=== PATIENT | male | born 1945 | race Caucasian/White ===

== ENCOUNTER 2016-10-25 09:27 | Inpatient (IN) | payer MEDICARE, OTHER ==
[~2016-10-25] VITALS: Ht 185.4 cm; Wt 140.3 kg
[~2016-10-25 09:27] MED LIST: AMBIEN 10MG10 MG PO; ASPIRIN 81M81 MG/TA2 PO; CEPHALEXIN500 M1 PO; COLACE 100100 MG/CAP PO; DESYREL 100MG100 MG PO; DULERA1 AR1 IH; FOLIC ACID 40400 MCG PO; IRON324 M1 PO; LEVAQUIN 5500 MG/TA1 PO; MAXZIDE-25MG TA1 TAB PO; MUCINEX1200 MG PO; NO HOME MEDICATIONS; NORCO 325 MG-51 TAB PO; OMNICEF 300MG300 MG PO; PERCOCET 325 MG1 TA2 PO; PRILOSEC 20MG20 MG PO; PROVENTIL0.09 MG/A1 IH; SPIRIVA RE2.5 MCG/Ac IH; TYLENOL 325MG325 MG PO; TYLENOL 500MG500 MG PO; ULTRAM 50MG TAB50 MG PO; VITAMIN C500 MG PO; ZOFRAN ODT4 MG PO
[2016-10-25] MEDS ORDERED: GLUCOPHAGE500 MG/TAB PO (09:45)
[2016-10-25 10:47] LABS: BASO # 0.1 (0.0-0.2); BASO % 0.3 % (0.0-2.0); EOS # 0.1 (0.0-0.7); EOS % 0.8 % (0-4.0); GRAN # 11.3 (1.4-6.5); HEMOGLOBIN 15.1 g/dl (13.5-18.0); LYMPH # 1.7 (1.2-3.4); LYMPH % 11.6 % (20.0-51.0); MEAN CELL VOLUME 90 fl (80.0-100.0); MEAN CORPUSCULAR HEMOGLOBIN 31 pg (27.0-31.0); MEAN CORPUSCULAR HGB CONC 34 g/dl (33.0-37.0); MEAN PLATELET VOLUME 9.6 fl (7.4-10.4); MONO # 1.4 (0.1-0.6); MONO % 9.8 % (1.7-9.3); PLATELET COUNT 276 K/mm3 (130-400); RED BLOOD COUNT 4.89 M/mm3 (4.20-5.60); REDCELL DISTRIBUTION WIDTH-CV 12.4 % (11.5-14.5); WHITE BLOOD COUNT 14.6 K/mm3 (4.8-10.8)
[2016-10-25 11:03] LABS: ADJUSTED CALCIUM 9.2 mg/dL (8.4-10.2); ALBUMIN 3.7 gm/dL (3.5-5.0); BILIRUBIN,TOTAL 1.1 mg/dL (0.0-1.0); C-REACTIVE PROTEIN 5.9 mg/dL (0.0-0.9)
[2016-10-25 13:31] LABS: PH 5 (5-8); SQUAMOUS EPITHELIAL 0-2 /hpf; URINE APPEARANCE Clear; URINE BACTERIA None Seen /hpf; URINE BILIRUBIN Negative (NEGATIVE); URINE BLOOD 1+ (NEGATIVE); URINE COLOR Yellow; URINE GLUCOSE Negative (NEGATIVE); URINE KETONE Trace (NEGATIVE); URINE RBC 0-2 /hpf; URINE UROBILINOGEN Negative (NEGATIVE); URINE WBC 0-2 /hpf
[2016-10-25 14:41] VITALS: BP 129/52; PULSE 79; TEMP 98
[2016-10-25 16:27] VITALS: BP 155/63; PULSE 64; TEMP 99.9
[2016-10-25 20:46] VITALS: BP 142/61; PULSE 73; TEMP 99.6
[2016-10-26 00:43] VITALS: BP 126/53; PULSE 77; TEMP 99.2
[2016-10-26 03:27] VITALS: BP 116/50; PULSE 71; TEMP 99.1
[2016-10-26 07:31] VITALS: BP 131/56; PULSE 66; TEMP 98.4
[2016-10-26 09:04] LABS: HEMATOCRIT 43.2 % (42.0-52.0); HEMOGLOBIN 14.4 g/dl (13.5-18.0); MEAN CELL VOLUME 92 fl (80.0-100.0); MEAN CORPUSCULAR HEMOGLOBIN 31 pg (27.0-31.0); MEAN CORPUSCULAR HGB CONC 33 g/dl (33.0-37.0); PLATELET COUNT 243 K/mm3 (130-400); REDCELL DISTRIBUTION WIDTH-CV 12.6 % (11.5-14.5); WHITE BLOOD COUNT 16.5 K/mm3 (4.8-10.8)
[2016-10-26 09:07] LABS: ADD PATHOLOGY DIFF REVIEW NO
[2016-10-26 12:00] VITALS: BP 134/72; PULSE 73; TEMP 98.1
[2016-10-26 13:44] LABS: BAND 5 % (0-10); BASOPHIL 1 % (0-2); EOSINOPHIL 1 % (0-4); METAMYELOCYTE 1 % (0-0); NEUTROPHILS 72 % (42.0-75.2); PLATELET ESTIMATE NORMAL (NORMAL); TOTAL CELLS COUNTED 100
[2016-10-26 16:57] VITALS: BP 118/54; PULSE 75; TEMP 98.8
[2016-10-26 20:05] VITALS: BP 124/57; PULSE 74; TEMP 99.6
[2016-10-27 00:31] VITALS: BP 114/66; PULSE 78; TEMP 99.2
[2016-10-27 04:31] VITALS: BP 124/56; PULSE 79; TEMP 98.9
[2016-10-27 07:42] VITALS: BP 125/55; PULSE 72; TEMP 98.2
[2016-10-27 08:41] LABS: BASO % 0.2 % (0.0-2.0); EOS # 0.2 (0.0-0.7); EOS % 1.3 % (0-4.0); GRAN # 8.7 (1.4-6.5); GRAN % 73.8 % (42.2-75.2); HEMATOCRIT 39.3 % (42.0-52.0); HEMOGLOBIN 13.1 g/dl (13.5-18.0); LYMPH # 1.5 (1.2-3.4); LYMPH % 12.5 % (20.0-51.0); MEAN CELL VOLUME 93 fl (80.0-100.0); MEAN CORPUSCULAR HEMOGLOBIN 31 pg (27.0-31.0); MEAN CORPUSCULAR HGB CONC 33 g/dl (33.0-37.0); MONO # 1.4 (0.1-0.6); MONO % 11.5 % (1.7-9.3); PLATELET COUNT 202 K/mm3 (130-400); RED BLOOD COUNT 4.25 M/mm3 (4.20-5.60); REDCELL DISTRIBUTION WIDTH-CV 12.5 % (11.5-14.5); WHITE BLOOD COUNT 11.7 K/mm3 (4.8-10.8)
[2016-10-27 09:04] LABS: ADJUSTED CALCIUM 9.2 mg/dL (8.4-10.2); ALBUMIN 3.2 gm/dL (3.5-5.0); BILIRUBIN,TOTAL 1.4 mg/dL (0.0-1.0); CALCIUM 8.6 mg/dL (8.4-10.2); CREATININE, serum 0.84 mg/dL (0.66-1.25); POTASSIUM 3.7 mmol/L (3.4-5.0); TOTAL PROTEIN 6.5 gm/dL (6.4-8.2)
[2016-10-27 12:00] VITALS: BP 119/96; PULSE 97; TEMP 98.2
[2016-10-27 16:02] VITALS: BP 126/61; PULSE 79; TEMP 98.6
[2016-10-27 20:26] VITALS: BP 131/58; PULSE 85; TEMP 98.3
[2016-10-28 00:11] VITALS: BP 111/53; PULSE 77; TEMP 98.9
[2016-10-28 03:30] VITALS: BP 118/55; PULSE 72; TEMP 98.1
[2016-10-28 06:40] LABS: CALCIUM 8.3 mg/dL (8.4-10.2); CREATININE, serum 0.76 mg/dL (0.66-1.25); POTASSIUM 3.5 mmol/L (3.4-5.0)
[2016-10-28 06:44] LABS: BASO % 0.5 % (0.0-2.0); EOS # 0.2 (0.0-0.7); GRAN # 5.8 (1.4-6.5); HEMOGLOBIN 12.4 g/dl (13.5-18.0); MEAN CELL VOLUME 90 fl (80.0-100.0); MEAN CORPUSCULAR HEMOGLOBIN 30 pg (27.0-31.0); MEAN CORPUSCULAR HGB CONC 34 g/dl (33.0-37.0); MEAN PLATELET VOLUME 10.1 fl (7.4-10.4); MONO # 1.1 (0.1-0.6); MONO % 14.1 % (1.7-9.3); PLATELET COUNT 185 K/mm3 (130-400); RED BLOOD COUNT 4.08 M/mm3 (4.20-5.60); REDCELL DISTRIBUTION WIDTH-CV 12.4 % (11.5-14.5); WHITE BLOOD COUNT 8.1 K/mm3 (4.8-10.8)
[2016-10-28 06:45] LABS: HEMATOCRIT 36.5 % (42.0-52.0)
[2016-10-28 08:09] VITALS: BP 133/55; PULSE 74; TEMP 98.2
[2016-10-28] MEDS ORDERED: PERCOCET 325 MG1 TA2 PO (09:16)
== END 2016-10-28 11:32 | disposition home or self-care (01) | DRG 439 ==
LOC: COL.ER 09:27 → MEDICAL 12:58
PROVIDERS: Emergency Medicine; Internal Medicine; Nurse Practitioner Family
DX: K85.90 Acute pancreatitis without necrosis or infection, unspecified (principal); Z68.41 Body mass index [BMI] 40.0-44.9, adult; K86.1 Other chronic pancreatitis; J43.9 Emphysema, unspecified; G47.33 Obstructive sleep apnea (adult) (pediatric); E11.9 Type 2 diabetes mellitus without complications; I10 Essential (primary) hypertension; E66.01 Morbid (severe) obesity due to excess calories; Z99.81 Dependence on supplemental oxygen; Z87.891 Personal history of nicotine dependence; Z79.84 Long term (current) use of oral hypoglycemic drugs
CPT/HCPCS: 99222-AI; 99232-AI; 99239; J1170; J1650; J2405; J7030; Q9967

== ENCOUNTER → 2017-10-27 | Outpatient (CLI) | payer MEDICARE, OTHER ==
[~2017-10-27] MED LIST changes: +GLUCOPHAGE500 MG/TAB PO
== END ==
LOC: COL.RAD 10:07
DX: Z13.6 Encounter for screening for cardiovascular disorders (principal)

== ENCOUNTER 2018-05-14 08:02 | Day surgery (SDC) | payer MEDICARE ==
[2018-05-14] VITALS (12 sets, daily range): BP systolic 119–162; BP diastolic 57–80; PULSE 61–100; TEMP 98.2
[~2018-05-14] VITALS: Ht 185.4 cm; Wt 154.0 kg
[2018-05-14 08:43] LABS: HEMOGLOBIN 15.6 g/dl (13.5-18.0); MEAN CELL VOLUME 94 fl (80.0-100.0); MEAN CORPUSCULAR HEMOGLOBIN 32 pg (27.0-31.0); MEAN CORPUSCULAR HGB CONC 34 g/dl (33.0-37.0); MEAN PLATELET VOLUME 9.5 fl (7.4-10.4); PLATELET COUNT 234 K/mm3 (130-400); RED BLOOD COUNT 4.92 M/mm3 (4.20-5.60); REDCELL DISTRIBUTION WIDTH-CV 13.2 % (11.5-14.5)
[2018-05-14 08:55] LABS: PROTHROMBIN TIME 11.6 SECONDS (9.7-12.8)
[2018-05-14 09:06] LABS: CALCIUM 8.8 mg/dL (8.4-10.2); CREATININE, serum 0.97 mg/dL (0.66-1.25); POTASSIUM 4.2 mmol/L (3.4-5.0)
[2018-05-14] MEDS ORDERED: LASIX 20MG TABL20 MG PO (09:25)
[2018-05-14] MEDS ORDERED: CARTIA XT120 MG PO (09:27)
[2018-05-14] MEDS ORDERED: K-DUR 10 MEQ T10 MEQ PO (09:27)
[2018-05-14] MEDS ORDERED: NITROSTAT0.4 MG/TAB SL (09:28)
[2018-05-14] MEDS ORDERED: FLOMAX 0.40.4 MG/CAP PO (09:28)
== END 2018-05-14 17:14 | disposition home or self-care (01) ==
LOC: COL.CAR 08:02
PROVIDERS: Internal Medicine Cardiovascular Disease
DX: I25.10 Atherosclerotic heart disease of native coronary artery without angina pectoris (principal); I27.20 Pulmonary hypertension, unspecified; R94.39 Abnormal result of other cardiovascular function study; E66.9 Obesity, unspecified; G47.33 Obstructive sleep apnea (adult) (pediatric); I49.1 Atrial premature depolarization; I49.3 Ventricular premature depolarization; J44.9 Chronic obstructive pulmonary disease, unspecified; Z88.6 Allergy status to analgesic agent
CPT/HCPCS: C1760; C1894; J1644; Q9967

== ENCOUNTER → 2019-08-31 | Outpatient (CLI) | payer MEDICARE ==
[~2019-08-31] MED LIST changes: +CARTIA XT120 MG PO; +FLOMAX 0.40.4 MG/CAP PO; +K-DUR 10 MEQ T10 MEQ PO; +LASIX 20MG TABL20 MG PO; +NITROSTAT0.4 MG/TAB SL
[2019-08-31 10:47] LABS: CALCIUM 9.5 mg/dL (8.4-10.2); CREATININE, serum 1.03 (0.66-1.25); POTASSIUM 5.1 mmol/L (3.4-5.0)
== END ==
LOC: COL.RAD 10:05
PROVIDERS: Internal Medicine Pulmonary Disease
DX: J43.9 Emphysema, unspecified (principal); J92.9 Pleural plaque without asbestos; K76.0 Fatty (change of) liver, not elsewhere classified; R91.1 Solitary pulmonary nodule; Z90.49 Acquired absence of other specified parts of digestive tract
CPT/HCPCS: Q9967

== ENCOUNTER → 2019-09-07 | Outpatient (CLI) | payer MEDICARE ==
[2019-09-07 16:12] LABS: HEMATOCRIT 46.9 % (42.0-52.0); MEAN CELL VOLUME 93 fl (80.0-100.0); MEAN CORPUSCULAR HEMOGLOBIN 32 pg (27.0-31.0); MEAN CORPUSCULAR HGB CONC 34 g/dl (33.0-37.0); MEAN PLATELET VOLUME 9.8 fl (7.4-10.4); PLATELET COUNT 245 K/mm3 (130-400); RED BLOOD COUNT 5.02 M/mm3 (4.20-5.60); REDCELL DISTRIBUTION WIDTH-CV 12.9 % (11.5-14.5)
[2019-09-07 16:40] LABS: ERYTHROCYTE SEDIMENTATION RATE 6 mm/hr (0-30)
== END ==
LOC: COL.LAB 14:55
PROVIDERS: Orthopaedic Surgery
DX: M25.561 Pain in right knee (principal); M25.562 Pain in left knee

== ENCOUNTER → 2020-02-04 | Outpatient (CLI) | payer MEDICARE ==
[2020-02-04 15:26] LABS: BASO % 0.3 % (0.0-2.0); EOS # 0.1 (0.0-0.7); EOS % 0.6 % (0-4.0); GRAN # 10.6 (1.4-6.5); GRAN % 75.3 % (42.2-75.2); HEMATOCRIT 48.5 % (42.0-52.0); LYMPH # 1.9 (1.2-3.4); LYMPH % 13.7 % (20.0-51.0); MEAN CELL VOLUME 93 fl (80.0-100.0); MEAN CORPUSCULAR HEMOGLOBIN 33 pg (27.0-31.0); MEAN CORPUSCULAR HGB CONC 35 g/dl (33.0-37.0); MEAN PLATELET VOLUME 9.3 fl (7.4-10.4); MONO # 1.4 (0.1-0.6); MONO % 9.8 % (1.7-9.3); PLATELET COUNT 274 K/mm3 (130-400); RED BLOOD COUNT 5.22 M/mm3 (4.20-5.60); REDCELL DISTRIBUTION WIDTH-CV 12.5 % (11.5-14.5)
[2020-02-04 15:40] LABS: ALBUMIN 4.2 gm/dL (3.5-5.0); CALCIUM 9.4 mg/dL (8.4-10.2); CREATININE, serum 0.87 (0.66-1.25); TOTAL PROTEIN 7.7 gm/dL (6.4-8.2)
[2020-02-04 15:51] LABS: ERYTHROCYTE SEDIMENTATION RATE 15 mm/hr (0-30)
== END ==
LOC: COL.LAB 15:03
PROVIDERS: Nurse Practitioner Family
DX: R10.12 Left upper quadrant pain (principal)

== ENCOUNTER → 2021-05-21 | Outpatient (CLI) | payer MEDICARE ==
[~2021-05-21] MED LIST changes: +THEO-24 30300 MG/CAP PO
== END ==
LOC: COL.RAD 07:15
DX: R68.81 Early satiety (principal); R63.4 Abnormal weight loss
CPT/HCPCS: A9541

== ENCOUNTER → 2021-05-22 | Outpatient (CLI) | payer MEDICARE | LOC: COL.RAD 08:07 | DX: K21.9 Gastro-esophageal reflux disease without esophagitis (principal); R63.4 Abnormal weight loss; R68.81 Early satiety ==

== ENCOUNTER 2021-06-07 12:10 | Day surgery (SDC) | payer MEDICARE ==
[~2021-06-07] VITALS: Ht 182.9 cm; Wt 142.4 kg
[~2021-06-07 12:10] MED LIST changes: -THEO-24 30300 MG/CAP PO
[2021-06-07 13:15] VITALS: BP 156/83; PULSE 72; TEMP 97.7
[2021-06-07] MEDS ORDERED: THEO-24 30300 MG/CAP PO (13:23)
[2021-06-07 15:01] VITALS: TEMP 97.5
[2021-06-07 15:30] VITALS: BP 156/87; PULSE 66
--- NOTE | 2021-06-07 15:30 | NUR ---
Patient returns to room 1 per cart from PACU accompanied by Hallie HERNANDEZ and is awake and alert. IV fluids infused and converted to INT. States that he is needing to urinate. Assisted up to the bathroom and gait is steady. Voids pink urine with small clot noted and returns to room. Room air sats 94%.
[2021-06-07 15:45] VITALS: BP 175/82; PULSE 68
--- NOTE | 2021-06-07 15:45 | NUR ---
Sitting on edge of cart eating muffin and apple sauce. Denies pain or nausea.
[2021-06-07 16:00] VITALS: BP 173/77; PULSE 65
--- NOTE | 2021-06-07 16:00 | NUR ---
Again up to the bathroom and gait steady. Voids and returns to room. Ride notified.
--- NOTE | 2021-06-07 16:05 | NUR ---
INT discontinued and site is free of redness. Patient is dressed. Dismissal instructions signed.
--- NOTE | 2021-06-07 16:11 | NUR ---
Patient dismissed to home driven by grandson. Taken to the front door by wheelchair and assisted into vehicle.
== END 2021-06-07 16:11 | disposition home or self-care (01) ==
LOC: SDCO 12:10
DX: C67.9 Malignant neoplasm of bladder, unspecified (principal); N40.1 Benign prostatic hyperplasia with lower urinary tract symptoms; R30.0 Dysuria; R35.0 Frequency of micturition; N40.0 Benign prostatic hyperplasia without lower urinary tract symptoms; J43.9 Emphysema, unspecified; E78.5 Hyperlipidemia, unspecified; E66.9 Obesity, unspecified; G47.33 Obstructive sleep apnea (adult) (pediatric); M19.90 Unspecified osteoarthritis, unspecified site; I49.3 Ventricular premature depolarization; I10 Essential (primary) hypertension; D64.9 Anemia, unspecified; Z90.49 Acquired absence of other specified parts of digestive tract; Z20.822 Contact with and (suspected) exposure to COVID-19; Z79.899 Other long term (current) drug therapy; Z87.891 Personal history of nicotine dependence; Z99.89 Dependence on other enabling machines and devices; Z85.828 Personal history of other malignant neoplasm of skin
CPT/HCPCS: J0690; J1100; J2405; J2704; J3010; J7120; Q9967

== ENCOUNTER 2021-07-05 13:09 | Day surgery (SDC) | payer MEDICARE ==
[~2021-07-05] VITALS: Ht 182.9 cm; Wt 140.0 kg
[~2021-07-05 13:09] MED LIST changes: +THEO-24 30300 MG/CAP PO
[2021-07-05 14:12] VITALS: BP 140/91; PULSE 84; TEMP 97.8
[2021-07-05 17:07] VITALS: TEMP 97.9
[2021-07-05 17:20] VITALS: BP 154/80; PULSE 76
--- NOTE | 2021-07-05 17:20 | NUR ---
Patient returns to room 5 per cart from PACU accompanied by Yumiko HERNANDEZ and is awake and alert. Temp 98.7 and room air sats 93%. Tubbs catheter draining pink urine. No clots noted. STAT lock in place to secure tubbs. IV fluids infusing. Siderails up x2 and call light in reach. Drinking water.
[2021-07-05 17:35] VITALS: BP 156/67; PULSE 73
--- NOTE | 2021-07-05 17:35 | NUR ---
Eating muffin and drinking water. Alcazar with pink urine.
[2021-07-05 17:50] VITALS: BP 159/71; PULSE 63
--- NOTE | 2021-07-05 17:50 | NUR ---
IV discontinued and site is free of redness. Alcazar catheter connected to leg bag and instructed patient to use the leg bag during the day and large dependent drainage bag at night. Provided alcohol wipes and written instructions on how to care for catheter. Noted slight bleeding from meatus and rachelle cares done. Pressure applied and bleeding stops.
--- NOTE | 2021-07-05 18:07 | NUR ---
Assisted with dressing. Dismissal instructions given and signed. Patient voices understanding of these.
--- NOTE | 2021-07-05 18:13 | NUR ---
Patient dismissed to home driven by grandson and taken to the ER entrance and assisted into vehicle with instructions in hand.
== END 2021-07-05 18:11 | disposition home or self-care (01) ==
LOC: SDCO 13:09
DX: C67.2 Malignant neoplasm of lateral wall of bladder (principal); C44.90 Unspecified malignant neoplasm of skin, unspecified; I10 Essential (primary) hypertension; G47.33 Obstructive sleep apnea (adult) (pediatric); N40.0 Benign prostatic hyperplasia without lower urinary tract symptoms; J43.9 Emphysema, unspecified; E66.9 Obesity, unspecified; Z20.822 Contact with and (suspected) exposure to COVID-19; Z87.891 Personal history of nicotine dependence; Z79.899 Other long term (current) drug therapy; Z79.51 Long term (current) use of inhaled steroids
CPT/HCPCS: J0690; J2405; J2704; J3010; J7120

== ENCOUNTER 2021-10-22 08:39 | Day surgery (SDC) | payer MEDICARE ==
[~2021-10-22] VITALS: Ht 182.9 cm; Wt 141.1 kg
[2021-10-22 10:21] VITALS: BP 130/87; PULSE 129; TEMP 99.2
--- NOTE | 2021-10-22 11:15 | NUR ---
Patient was taken back to the OR.
[2021-10-22 12:16] VITALS: BP 125/74; PULSE 124; TEMP 98.2
[2021-10-22] MEDS ORDERED: MOTRIN 600600 MG/TAB PO (12:16)
[2021-10-22] MEDS ORDERED: ULTRAM 50MG TAB50 MG PO (12:16)
--- NOTE | 2021-10-22 12:16 | NUR ---
Patient arrived on cart from OR after recieving moderate sedation. Patient is alert and oriented x3. Patient denies having any pain. Vitals obatined. Patient was assisted with repositioning. Patient requested water without ice and is tolerating it well. Son was brought in from waiting room. Side rails x2. Call dye is at bedside.
[2021-10-22 12:31] VITALS: BP 130/88; PULSE 125
--- NOTE | 2021-10-22 12:31 | NUR ---
Patient requested a warm muffin to eat. His grandson is in his room. Vitals obtained.
[2021-10-22 12:46] VITALS: BP 145/91; PULSE 126
--- NOTE | 2021-10-22 12:46 | NUR ---
Vitals obtained. Patient expressed desire to be discharged.
--- NOTE | 2021-10-22 13:05 | NUR ---
Patient used the bathroom, and then was escorted out to the patient entrence via wheelchair. The patient was trasferred into the care of his grandson, who is present to drive. His grandson has the discharge packet and personal belonings of the patient. Patient was assisted into the front seat of the car, where he put on his seat belt.
--- NOTE | 2021-10-22 13:23 | NUR ---
IV was discontinued at this time. Catheter tip intact. Pressure dressing applied. No redness or swelling noted. Discharge instructions and educational material was reviewed with the patient and his grandson. Both verbalized understanding of material and the patient signed the related paperwork. Patient denied needing assistance with changing.
== END 2021-10-22 13:05 | disposition home or self-care (01) ==
LOC: SDCO 08:39
DX: C67.9 Malignant neoplasm of bladder, unspecified (principal); I10 Essential (primary) hypertension; I25.10 Atherosclerotic heart disease of native coronary artery without angina pectoris; J44.9 Chronic obstructive pulmonary disease, unspecified; G47.33 Obstructive sleep apnea (adult) (pediatric); D64.9 Anemia, unspecified; M19.90 Unspecified osteoarthritis, unspecified site; Z87.891 Personal history of nicotine dependence; Z99.89 Dependence on other enabling machines and devices; Z85.51 Personal history of malignant neoplasm of bladder; Z90.49 Acquired absence of other specified parts of digestive tract; Z79.899 Other long term (current) drug therapy; Z80.1 Family history of malignant neoplasm of trachea, bronchus and lung; Z80.3 Family history of malignant neoplasm of breast; Z80.8 Family history of malignant neoplasm of other organs or systems
CPT/HCPCS: C1788; J0690; J1644; J2704; J3010; J7120

== ENCOUNTER 2021-11-22 11:08 | Inpatient (IN) | payer MEDICARE ==
[2021-11-22] VITALS (352 sets, daily range): BP systolic 99–116; BP diastolic 62–71; PULSE 128–131; TEMP 97.7–98.3; O2SAT 77–96
[~2021-11-22] VITALS: Ht 182.9 cm; Wt 137.7 kg
[~2021-11-22 11:08] MED LIST changes: +MOTRIN 600600 MG/TAB PO
[2021-11-22 11:59] LABS: BASO % 0.1 % (0.0-2.0); EOS % 0.1 % (0.0-4.0); GRAN # 7.2 K/mm3 (1.4-6.5); GRAN % 88.6 % (42.2-75.2); HEMOGLOBIN 10.1 g/dl (13.5-18.0); LYMPH # 0.7 K/mm3 (1.2-3.4); LYMPH % 8.3 % (20.0-51.0); MEAN CELL VOLUME 99 fl (80.0-100.0); MEAN CORPUSCULAR HEMOGLOBIN 34 pg (27-31); MEAN CORPUSCULAR HGB CONC 34 g/dl (33.0-37.0); MEAN PLATELET VOLUME 9.9 fl (7.4-10.4); MONO # 0.2 K/mm3 (0.1-0.6); PLATELET COUNT 270 K/mm3 (130-400); RED BLOOD COUNT 3.01 M/mm3 (4.20-5.60); REDCELL DISTRIBUTION WIDTH-CV 17.2 % (11.5-14.5)
[2021-11-22 12:00] LABS: HEMATOCRIT 29.8 % (42.0-52.0)
[2021-11-22 12:04] LABS: INR 1.5 (0.8-3.0); PROTHROMBIN TIME 16.3 SECONDS (9.7-12.8)
[2021-11-22 12:21] LABS: ALBUMIN 2.9 gm/dL (3.4-4.8); BILIRUBIN,TOTAL 0.9 mg/dL (0.2-1.2); CALCIUM 8.7 mg/dL (8.4-10.2); CREATININE, serum 2.18 mg/dL (0.72-1.25); POTASSIUM 3.4 mmol/L (3.5-4.5); TOTAL PROTEIN 6.4 gm/dL (6.2-8.1)
[2021-11-22 12:29] LABS: TROPONIN-I 0.029 ng/mL (0.00-0.033)
[2021-11-22] MEDS ORDERED: ELIQUIS 5MG PO (12:34)
--- NOTE | 2021-11-22 14:10 | NUR ---
Patient arrives to ICU. He is on 5L O2. Short of breath with exertion. He is assisted to bed with 2:1 assist. HR 130s on tele. Cardizem gtt infusing at 5 mg/hr. Patient assessed and oriented to the room. All questions answered. Orders reviewed.
--- NOTE | 2021-11-22 14:16 | NUR ---
wallet and vanegas sent to the safe with Line Crewman. Contents reviewed and documented with the patient. $921 vanegas, 3 credit cards, ins cards, ID, med list and wallet.
--- NOTE | 2021-11-22 15:55 | NUR ---
Chemotherapy Precautions: Double gloves and gown should be worn when contact with urine x7 days (11/29 am). Primary nurse notified this RN that pt had recieved Gemcitabine this am at oncology office.
[2021-11-22 17:44] LABS: COLLECTION METHOD CLEAN CATCH
[2021-11-22 17:57] LABS: PH 5 (5-8); SQUAMOUS EPITHELIAL 0-2 /hpf (0-10); URINE APPEARANCE Hazy (CLEAR/HAZY); URINE BACTERIA Rare /hpf (NONE SEEN); URINE BILIRUBIN Negative (NEGATIVE); URINE BLOOD 1+ (NEGATIVE); URINE COLOR Yellow (YELLOW); URINE GLUCOSE Negative (NEGATIVE); URINE KETONE Negative (NEGATIVE); URINE LEUKOCYTE ESTERASE Negative (NEGATIVE); URINE NITRATE Negative (NEGATIVE); URINE PROTEIN(semi-quant) Negative (NEGATIVE); URINE UROBILINOGEN Negative (NEGATIVE)
--- NOTE | 2021-11-22 18:14 | NUR ---
JAIDEN/[place] [address]11/23/21. VERIFIED WITH DR. FRANZ, PIPING ENGINEER AND ANESTHESIA
--- NOTE | 2021-11-22 19:24 | NUR ---
REPORT GIVEN TO DAVID FREDERICK
--- NOTE | 2021-11-22 19:49 | NUR ---
BEDSIDE REPORT RECEIVED FROM DAVID RUIZ. PT LYING IN BED AT THIS TIME; PARTICIPATES IN REPORT. PT WILL BE NPO AFTER MIDNIGHT FOR JAIDEN/CARDIVERSION TOMORROW AM. RIGHT PORT A CATH ACCESSED WITH MEDICATIONS INFUSING; SEE GTT FLOW SHEET. LEFT AC PERIPHERAL IV SALINE LOCKED. FC TO DEPENDENT DRAINAGE. PT ON CHEMO PRECAUTIONS WHEN HANDLING URINE. PT OFFERS NO COMPLAINTS AT THIS TIME. VITAL SIGNS STABLE.
--- NOTE | 2021-11-22 22:05 | NUR ---
PTT WITHIN THERAPEUTIC HEPARIN RANGE AT 85.5. NO CHANGES MADE TO GTT RATE.
[2021-11-23] VITALS (1356 sets, daily range): BP systolic 93–131; BP diastolic 54–73; PULSE 80–130; TEMP 97.5–98.6; O2SAT 66–100
[2021-11-23 04:15] LABS: MEAN CELL VOLUME 96 fl (80.0-100.0); MEAN CORPUSCULAR HGB CONC 34 g/dl (33.0-37.0); MEAN PLATELET VOLUME 9.6 fl (7.4-10.4); PLATELET COUNT 195 K/mm3 (130-400); RED BLOOD COUNT 2.79 M/mm3 (4.20-5.60); REDCELL DISTRIBUTION WIDTH-CV 16.9 % (11.5-14.5)
[2021-11-23 04:21] LABS: HEMATOCRIT 26.8 % (42.0-52.0); HEMOGLOBIN 9.1 g/dl (13.5-18.0); MEAN CORPUSCULAR HEMOGLOBIN 33 pg (27-31)
--- NOTE | 2021-11-23 04:31 | NUR ---
HEPARIN GTT THERAPEUTIC AT THIS TIME WITH PTT RESULTING AT 105.4. CONTINUE HEPARIN GTT AT RATE OF 2300 UNITS/HR.
[2021-11-23 04:54] LABS: ALBUMIN 2.5 gm/dL (3.4-4.8); CALCIUM 8.4 mg/dL (8.4-10.2); CREATININE, serum 2.18 mg/dL (0.72-1.25); MAGNESIUM 1.8 mg/dL (1.6-2.6); PHOSPHOROUS 3.8 mg/dL (2.3-4.7); POTASSIUM 3.8 mmol/L (3.5-4.5)
[2021-11-23 05:22] LABS: ANISOCYTOSIS 1+; BAND 2 % (0-10); HYPOCHROMIA 1+; LYMPHOCYTE 3 % (20.0-51.0); NEUTROPHILS 93 % (42.0-75.2); PLATELET ESTIMATE NORMAL (NORMAL)
--- NOTE | 2021-11-23 07:45 | NUR ---
PT REPORT RECEIVED BEDSIDE BY DAVID FREDERICK. PT IS AWAKE AND ALERT IN BED. PT COMPLAINS OF DRY MOUTH. MOUTH MOISTENING LUBRICATION AND MOUTH SWABS PROVIDED. PT ASSESSMENT COMPLETD. JAIDEN/CARDIOVERSION SCHEDULED FOR 929. PT CONSENT SIGNED.
--- NOTE | 2021-11-23 10:05 | NUR ---
0946- time out 0948- JAIDEN begins 1000- JAIDEN end time 1002- cardioversion successful. RN, MAIL AGENT, Dr. Zee bedside
--- NOTE | 2021-11-23 13:23 | NUR ---
dry cure worker contacted patient's daughter, Nadine Arias [phone] to assess patient's discharge planning needs. Nadine states that patient lives with his grandson and had just completed chemotherapy for bladder cancer the day her was brought into the emergency room. Patient was able to ambulate, however tired easily and used wheelchair when out in the community. Patient's primary care provider is Dr Delvis Jarrett. Patient did not utilize any services and his insurance covers prescriptions. Patient has a durable power of commercial attorney appointing daughter, Maxine Rust [phone]. Nadine will attempt to locate the document and get a copy to the hospital. Worker provided information on home health and private duty care. Nadine is very supportive of home health. Will await therapy consult and recommendation on disposition.
--- NOTE | 2021-11-23 20:11 | NUR ---
BEDSIDE REPORT RECEIVED FROM DAVID FLORENCE. PT HAD JULIO CÉSAR PICC PLACED TODAY; MEDICATIONS INFUSING, SEE GTT FLOW SHEET. RIGHT CHEST SHALOM CATH REMAINS ACCESSED AND SALINE LOCKED. FC TO DEPENDENT DRAINAGE. PT CURRENTLY ON 5L NC. SITS IN BED WITH HOB ELEVATED AND PARTICIPATES IN REPORT. VITAL SIGNS STABLE.
[2021-11-24] VITALS (1246 sets, daily range): BP systolic 108–149; BP diastolic 60–79; PULSE 80–102; TEMP 97.7–98.1; O2SAT 74–100
[2021-11-24 05:53] LABS: MEAN CELL VOLUME 98 fl (80.0-100.0); MEAN CORPUSCULAR HGB CONC 34 g/dl (33.0-37.0); MEAN PLATELET VOLUME 10.2 fl (7.4-10.4); PLATELET COUNT 122 K/mm3 (130-400); REDCELL DISTRIBUTION WIDTH-CV 16.8 % (11.5-14.5)
[2021-11-24 05:55] LABS: HEMATOCRIT 23.4 % (42.0-52.0); MEAN CORPUSCULAR HEMOGLOBIN 33 pg (27-31)
[2021-11-24 06:14] LABS: ANISOCYTOSIS 1+; HYPERSEGMENTED POLYS PRESENT; HYPOCHROMIA 1+; LYMPHOCYTE 6 % (20.0-51.0); NEUTROPHILS 92 % (42.0-75.2); PLATELET ESTIMATE DECREASED (NORMAL); POIKILOCYTOSIS 1+
[2021-11-24 06:39] LABS: ALBUMIN 2.2 gm/dL (3.4-4.8); CALCIUM 7.9 mg/dL (8.4-10.2); CREATININE, serum 2.31 mg/dL (0.72-1.25); MAGNESIUM 1.7 mg/dL (1.6-2.6); PHOSPHOROUS 4.2 mg/dL (2.3-4.7); POTASSIUM 3.5 mmol/L (3.5-4.5)
[2021-11-24 06:58] LABS: TSH w REFLEX 0.753 uIU/mL (0.350-4.940)
--- NOTE | 2021-11-24 07:51 | NUR ---
Dr. Torres into see patient. orders bumex and nitro drip.
--- NOTE | 2021-11-24 13:04 | NUR ---
PTT IN GOAL RANGE AT 107.8. NO CHANGE TO HEPARIN RATE.
--- NOTE | 2021-11-24 18:36 | NUR ---
PT UP TO BEDSIDE COMMODE WITH ASSISTANCE OF ONE. JAKE HAD A MEDIUM LIQUID CLEAR BM. BEDDING CHANGED AT THIS TIME. NEW GOWN FOR PT. DINNER ORDERED. PATIENT RESTING IN BED WITH CALL LIGHT IN HAND.
--- NOTE | 2021-11-24 20:57 | NUR ---
BEDSIDE REPORT RECEIVED FROM DAVID FLORENCE. FC TO DEPENDENT DRAINAGE. JULIO CÉSAR PICC IN PLACE WITH MEDICATIONS INFUSING; SEE GTT FLOW SHEET. RIGHT CHEST SHALOM CATH IN PLACE. PT WEARS 5L NC WITH SATS MAINTAINING IN LOW 90'S. PT IS ALERT AND ORIENTED AND PARTICIPATES IN REPORT. VITAL SIGNS STABLE.
[2021-11-25] VITALS (832 sets, daily range): BP systolic 115–128; BP diastolic 54–64; PULSE 93–107; TEMP 97.6–98.7; O2SAT 50–100
[2021-11-25 05:59] LABS: MEAN CELL VOLUME 99 fl (80.0-100.0); MEAN CORPUSCULAR HGB CONC 34 g/dl (33.0-37.0); PLATELET COUNT 92 K/mm3 (130-400); RED BLOOD COUNT 2.16 M/mm3 (4.20-5.60); REDCELL DISTRIBUTION WIDTH-CV 16.9 % (11.5-14.5)
[2021-11-25 06:02] LABS: HEMATOCRIT 21.4 % (42.0-52.0); HEMOGLOBIN 7.2 g/dl (13.5-18.0); MEAN CORPUSCULAR HEMOGLOBIN 33 pg (27-31)
[2021-11-25 06:27] LABS: LYMPHOCYTE 4 % (20.0-51.0); NEUTROPHILS 96 % (42.0-75.2)
[2021-11-25 06:29] LABS: ANISOCYTOSIS 1+
[2021-11-25 06:31] LABS: HYPERSEGMENTED POLYS PRESENT
[2021-11-25 06:33] LABS: PLATELET ESTIMATE NORMAL (NORMAL)
[2021-11-25 06:50] LABS: ALBUMIN 2.3 gm/dL (3.4-4.8); CREATININE, serum 2.38 mg/dL (0.72-1.25); MAGNESIUM 1.6 mg/dL (1.6-2.6); PHOSPHOROUS 4.8 mg/dL (2.3-4.7); POTASSIUM 3.6 mmol/L (3.5-4.5)
[2021-11-25 12:48] LABS: POTASSIUM 3.8 mmol/L (3.5-4.5)
--- NOTE | 2021-11-25 15:46 | NUR ---
Report given to DAVID Ramirez. Patient to room 315 on medical via wheelchair.
--- NOTE | 2021-11-25 17:40 | NUR ---
PT PLEASANT, AOX4, DENIES PAIN, BS TAKEN, ASSESSMENT PERFORMED, EDEMA PRESENT, PT BRACELET CUT OFF
--- NOTE | 2021-11-25 22:08 | NUR ---
Patient assessed around 2044. Alert and oriented, able to make needs known. Complained of pain to mouth and throat. Red patches noted to top of mouth and white patches to tongue. Called and updated LOLA Pak. New order for lidocaine swish and spit, and given per orders. Continues on IV Lasix per orders. 3+ edema BLE and BUE. Indwelling tubbs catheter with clear yellow urine. Continues on oxygen at 4 L/min via NC. Voices no further questions, needs, or concerns at this time. In bed with call light within reach.
[2021-11-26] VITALS (12 sets, daily range): BP systolic 11–127; BP diastolic 44–68; PULSE 70–101; TEMP 97.5–98.7
--- NOTE | 2021-11-26 06:11 | NUR ---
Patient continues on oxygen at 4 L/min via NC. Continues to have sore tongue and throat. Given medications per orders. Voices no further questions, needs, or concerns at this time. Daughter called and updated on patient this morning. Patient in bed with call light within reach. Bed alarm on.
[2021-11-26 06:40] LABS: ALBUMIN 2.4 gm/dL (3.4-4.8); CALCIUM 8.4 mg/dL (8.4-10.2); CREATININE, serum 2.35 mg/dL (0.72-1.25); MAGNESIUM 1.6 mg/dL (1.6-2.6); PHOSPHOROUS 4.9 mg/dL (2.3-4.7); POTASSIUM 3.7 mmol/L (3.5-4.5)
[2021-11-26 07:00] LABS: MEAN CELL VOLUME 98 fl (80.0-100.0); MEAN CORPUSCULAR HGB CONC 34 g/dl (33.0-37.0); MEAN PLATELET VOLUME 10.8 fl (7.4-10.4); PLATELET COUNT 66 K/mm3 (130-400); RED BLOOD COUNT 2.14 M/mm3 (4.20-5.60); REDCELL DISTRIBUTION WIDTH-CV 16.5 % (11.5-14.5)
[2021-11-26 07:09] LABS: HEMATOCRIT 20.9 % (42.0-52.0); HEMOGLOBIN 7.1 g/dl (13.5-18.0); MEAN CORPUSCULAR HEMOGLOBIN 33 pg (27-31)
[2021-11-26 07:38] LABS: LYMPHOCYTE 4 % (20.0-51.0); NEUTROPHILS 96 % (42.0-75.2); PLATELET ESTIMATE DECREASED (NORMAL)
--- NOTE | 2021-11-26 08:50 | NUR ---
PT PLEASANT, AOX4, REPORTS PAIN IN THROAT, WHITE SPOTS VISUALIZED ALONG WITH RED PATCHES, PT ASSESSMENT PERFORMED, DENIES PAIN ELSEWHERE, CALL LIGHT WITHIN REACH, NO OTHER NEEDS
[2021-11-26 10:56] LABS: IRON,SERUM 232 ug/dL (50-175)
[2021-11-26 12:13] LABS: STREP SCREEN NEGATIVE
--- NOTE | 2021-11-26 13:53 | NUR ---
PT REPORTING CHEST PRESSURE 10/10, DIZZINESS, AND SOB. EKG ORDERED, GREGORY DAVILA NOTIFIED, VITALS TAKEN, O2 SAT 87% SWITCHED TO OXYMASK AND TITRATED TO 6L. PT SATTING 95% ON THIS, PT REPORTS SOME RELIEF OF SOB, TYLENOL ORDERED AND GIVEN. CONTINUE TO ASSESS VITALS.
--- NOTE | 2021-11-26 15:15 | NUR ---
PT REPORTS VISION RETURNING TO NORMAL, RESOLVING OF CHEST PAIN AND SOB. VITALS STABLE AT THIS ITME
--- NOTE | 2021-11-26 16:15 | NUR ---
Soaping Department Supervisor met with patient to follow up on discharge plan. SW reviewed recommendation for Home Health services and patient is agreeable to this. Patient states he is familiar with [facility] and would like SW to send referral to them. SHAHRIAR contacted Melissa at [facility] and faxed referral. SHAHRIAR also contacted patient's daughter, Nadine to provide update on discharge plan. Discharge Plan: Home with [facility]
[2021-11-27] VITALS (19 sets, daily range): BP systolic 106–145; BP diastolic 39–77; PULSE 77–98; TEMP 97.6–98.4
--- NOTE | 2021-11-27 00:24 | NUR ---
AT 0015, PT CALLS NURSE TO REPORT CHEST PAIN 5/10 AND PRESSURE, AND REPORTS SAME SENSATION EARLIER IN THE DAY. (SEE PREVIOUS NOTES), TELE REP. CONTACTED, PT RYTHM UNCHANGED; NSR WITH BUNDLE BRANCH BLOCK AND OCCASIONAL PAC'S. PT VSS, 02 6L NC. TYLENOL ADMINISTERED ORDERED, THIS NURSE WILL CONTINUE TO MONITOR.
--- NOTE | 2021-11-27 05:49 | NUR ---
PT FOUND RELIEF WITH TYLENOL ADMINISTRATION AND SLEPT THE REMAINING OF THE NIGHT. VSS. NPO STATUS MAINTAINED. ALL NEEDS MET THIS SHIFT.
[2021-11-27 06:44] LABS: MEAN CELL VOLUME 98 fl (80.0-100.0); MEAN CORPUSCULAR HGB CONC 34 g/dl (33.0-37.0); MEAN PLATELET VOLUME 10.7 fl (7.4-10.4); RED BLOOD COUNT 1.93 M/mm3 (4.20-5.60); REDCELL DISTRIBUTION WIDTH-CV 16.3 % (11.5-14.5)
[2021-11-27 06:59] LABS: HEMOGLOBIN 6.4 g/dl (13.5-18.0); MEAN CORPUSCULAR HEMOGLOBIN 33 pg (27-31); PLATELET COUNT 35 K/mm3 (130-400)
[2021-11-27 07:05] LABS: ALBUMIN 2.3 gm/dL (3.4-4.8); CALCIUM 8.2 mg/dL (8.4-10.2); CREATININE, serum 2.05 mg/dL (0.72-1.25); MAGNESIUM 1.6 mg/dL (1.6-2.6); PHOSPHOROUS 4.5 mg/dL (2.3-4.7); POTASSIUM 3.8 mmol/L (3.5-4.5)
[2021-11-27 07:25] LABS: LYMPHOCYTE 16 % (20.0-51.0); NEUTROPHILS 84 % (42.0-75.2); PLATELET ESTIMATE DECREASED (NORMAL)
--- NOTE | 2021-11-27 08:48 | NUR ---
CRITICAL HEMOGLOBIN AND PLATELET COUNT REPORTED BY LAB. LOLA REED NOTIFIED OF CRITICAL VALUES, ELIQUIS PLACED ON HOLD AND IRRADIATED BLOOD ORDERED. TYPE AND SCREEN DRAWN WITH LAB, ASSESSMENT PERFORMED, PT C/O LEMUS LEAKING, MORE SALINE PLACED IN BALLOON, NO LEAKING AT THIS TIME, IV ANX INFUSING PER ORDER, CALL LIGHT WITHIN REACH, PT REPORTS SORE THROAT BUT DENIES PAIN ELSEWHERE, NO OTHER NEEDS
--- NOTE | 2021-11-27 09:52 | NUR ---
ENT PHYSICIAN CONSULTED PER ORDER
--- NOTE | 2021-11-27 11:09 | NUR ---
0700- shift assessment completed. Telemetry on, HR irregular and tachycardic. O2 on @ 7L via high flow nasal cannula. Breath sounds clear bilaterally, experience shortness of breath at rest and with exertion. Central line right upper arm and subclavian central line intact, no edema noted. Alcazar catheter dry and intact with 350ml output. Patient reports buring to catheter tip. BLE +3 pitting edema with SCD's used. Patient does not report any other pain.
--- NOTE | 2021-11-27 11:10 | NUR ---
DA UPDATED ON PT CONDITION
--- NOTE | 2021-11-27 11:15 | NUR ---
[facility]
--- NOTE | 2021-11-27 11:17 | NUR ---
Sayra, at [facility], notified SW that they did not receive the referral on the patient. She asked for SW to email her the referral. SW to email the referral to Sayra. Awaiting screen. *Discharge plan: home with grandson and home health*
[2021-11-27 19:31] LABS: MEAN CELL VOLUME 95 fl (80.0-100.0); MEAN CORPUSCULAR HGB CONC 34 g/dl (33.0-37.0); RED BLOOD COUNT 2.18 M/mm3 (4.20-5.60); REDCELL DISTRIBUTION WIDTH-CV 16.2 % (11.5-14.5)
[2021-11-27 19:41] LABS: HEMATOCRIT 20.7 % (42.0-52.0); MEAN CORPUSCULAR HEMOGLOBIN 32 pg (27-31)
[2021-11-27 19:43] LABS: PLATELET COUNT 26 K/mm3 (130-400)
[2021-11-27 20:20] LABS: HYPERSEGMENTED POLYS PRESENT; LYMPHOCYTE 9 % (20.0-51.0); PLATELET ESTIMATE DECREASED (NORMAL)
[2021-11-27 20:21] LABS: ANISOCYTOSIS 1+
[2021-11-27 20:22] LABS: NEUTROPHILS 91 % (42.0-75.2)
[2021-11-28] VITALS (11 sets, daily range): BP systolic 106–137; BP diastolic 39–99; PULSE 78–86; TEMP 97.4–98.5
--- NOTE | 2021-11-28 01:08 | NUR ---
THIS NURSE RECEIVED PLT CRITICAL VALUE EARLIER THIS SHIFT (SEE LAB TRAIL), HOSPITALIST INFORMED, BLOOD PRODUCTS ORDERED THROUGH LAB.
--- NOTE | 2021-11-28 05:37 | NUR ---
THIS NURSE CONTACTED HOSPITALIST TO CHECK FOR DC FOR ACCU CHECKS PT BS HAVE BEEN STABLE FOR SEVERAL DAYS. DC'D ACCU CHECKS. THIS NURSE CONTACTED "E" IN BLOOD BANK TO CONFIRM ORDER FOR PLATELETS WAS IN WE SPOKE ABOUT IT EARLIER IN THE NIGHT WHEN PLATELET CRITICAL VALUE WAS RELAYED. "E" CONFIRMED WITH THIS NURSE THAT THERE WAS NO IRRIDATED PLATELETS. THIS MORNING WHEN THIS NURSE CALLS FOR CONIFRMATION AND TO CHECK ETA "E" CONFIRMS THERE IS IRRADATED PLATELTS AVAILABLE. I REQUSTED TO MAKE SURE THAT PRODUCT WAS SUBMITTED AND AVAILBLE FOR PICKUP VIA [employer]. "E" CONFIRMS SHE WILL MAKE PRODUCT AVAILBLE VIA [employer].
[2021-11-28 06:32] LABS: MEAN CELL VOLUME 95 fl (80.0-100.0); MEAN CORPUSCULAR HGB CONC 34 g/dl (33.0-37.0); RED BLOOD COUNT 2.15 M/mm3 (4.20-5.60); REDCELL DISTRIBUTION WIDTH-CV 16.4 % (11.5-14.5)
[2021-11-28 06:42] LABS: HEMATOCRIT 20.5 % (42.0-52.0); MEAN CORPUSCULAR HEMOGLOBIN 33 pg (27-31)
[2021-11-28 06:43] LABS: PLATELET COUNT 21 K/mm3 (130-400)
[2021-11-28 07:03] LABS: CALCIUM 8.1 mg/dL (8.4-10.2); CREATININE, serum 1.77 mg/dL (0.72-1.25); MAGNESIUM 1.6 mg/dL (1.6-2.6); POTASSIUM 3.8 mmol/L (3.5-4.5)
[2021-11-28 08:11] LABS: ANISOCYTOSIS 1+; LYMPHOCYTE 24 % (20.0-51.0); PLATELET ESTIMATE DECREASED (NORMAL)
[2021-11-28 08:12] LABS: TEAR DROP CELLS 1+
[2021-11-28 08:33] LABS: NEUTROPHILS 76 % (42.0-75.2)
--- NOTE | 2021-11-28 11:23 | NUR ---
Patient laying in bed and stated SOB. O2 on @ 6L via nasal cannula. Lung sounds diminished at bases. Teketry on with irregular rhythm. Central line to upper right arm and right subclavian CDI. No drainage noted. Alcazar cath patent with clear yellow urine extracted. BLE expierencing +3 pitting edema and BUE +2. Patient complained of right groin pain. Bruising noted. Primary nurse notified.
--- NOTE | 2021-11-28 18:44 | NUR ---
PT HAD UNEVENTFUL AFTERNOON AFTER GIVEN HIS PAIN MEDICATION. REPORT WAS GIVEN TO CLASS C TRUCK DRIVER RN.
[2021-11-29] VITALS (21 sets, daily range): BP systolic 103–137; BP diastolic 45–60; PULSE 78–87; TEMP 97.3–98.4
--- NOTE | 2021-11-29 03:07 | NUR ---
PT REPORTS N/V BUT DOES NOT WANT MEDICATION INTERVENTION. PT REQUESTS TO PROCESS EMESIS. THIS NURSE WILL CONTINUE TO MONITOR.
--- NOTE | 2021-11-29 03:46 | NUR ---
PT COUGH PERSISTING NON-STOP THIS NIGHT, HEMOPTYSIS NOTED, SMALL , RED BLOOD NOTED. HOSPITALIST INFORMED. MEDICATION ORDERED. THIS NURSE WILL CONTINUE TO MONITOR.
--- NOTE | 2021-11-29 05:28 | NUR ---
PT FOUND RELIEF WITH ROBITUSIN ADMINISTRATION. NO MORE HEMOTPYSIS EPISODES SINCE PREVIOUSLY REPORTED. PT APPEARS VERY FRAIL AND PALE. THIS NURSE SPENT SUBSTANTIAL TIME WITH PT OVERNIGHT. LEMUS C&D, URINE CONTINUES TO BE SLIGHTLY HAZY. ALL NEEDS MET THIS SHIFT. CALL LIGHT WITHIN REACH.
[2021-11-29 07:01] LABS: MEAN CELL VOLUME 96 fl (80.0-100.0); MEAN CORPUSCULAR HGB CONC 34 g/dl (33.0-37.0); MEAN PLATELET VOLUME 12.3 fl (7.4-10.4); RED BLOOD COUNT 2.08 M/mm3 (4.20-5.60); REDCELL DISTRIBUTION WIDTH-CV 16.3 % (11.5-14.5)
[2021-11-29 07:07] LABS: CALCIUM 8.3 mg/dL (8.4-10.2); CREATININE, serum 1.57 mg/dL (0.72-1.25); HEMATOCRIT 19.9 % (42.0-52.0); MAGNESIUM 1.8 mg/dL (1.6-2.6); MEAN CORPUSCULAR HEMOGLOBIN 32 pg (27-31); POTASSIUM 3.8 mmol/L (3.5-4.5)
[2021-11-29 07:09] LABS: HEMOGLOBIN 6.7 g/dl (13.5-18.0)
[2021-11-29 07:10] LABS: PLATELET COUNT 21 K/mm3 (130-400)
--- NOTE | 2021-11-29 08:45 | NUR ---
Izzy notified of critical labs (Low WBC, Hgb, and PLT). Also notified of hemoptysis. Patient coughing up thick/green sputum, a large amount of bright red blood was also present.
[2021-11-29 09:10] LABS: BASOPHIL 1 % (0-2); LYMPHOCYTE 67 % (20.0-51.0); NEUTROPHILS 32 % (42.0-75.2); PLATELET ESTIMATE DECREASED (NORMAL)
[2021-11-29 09:11] LABS: ANISOCYTOSIS 1+; HYPOCHROMIA 1+
--- NOTE | 2021-11-29 10:21 | NUR ---
Met with patient at bedside to discuss goals of care. Patient informs me that he has a DPOA and living will. I discussed code status with him a little and he stated he wouldn't want to be on a machine or to suffer. Stated he would want to talk with his children before making any decisions though. Also discussed his care and how aggressive he would want to be with everything and if he understood where things stand with his cancer treatment. Again, patient stated he would like to involve his children in these talks. Call made to daughter and she had a better idea what all was going on with patient's cancer treatment and that she would call her siblings and get a family meeting coordinated. Gave my direct phone number and notified SW and hospitalist team of conversation and plan for family meeting.
--- NOTE | 2021-11-29 15:15 | NUR ---
Blood transfusion started @ 1507. Rate is currently at 60mL/hr; Patient is tolerating this well. This RN will remain in the room for 15minutes to continue to monitor for reaction.
--- NOTE | 2021-11-29 15:43 | NUR ---
A palliative care consult was ordered. The patient would like to talk to his family about goals of care. The patient's family plans to come to the hospital tomorrow for a family meeting.
--- NOTE | 2021-11-29 15:48 | NUR ---
Had conversation with patient's daughter, Nadine. Family meeting set for 1300 tomorrow with Nadine, her son who is the patient's caregiver, patient's daughter Liliane (DPOA), and patient's son at bedside with the patient and hospitalist. Nadine stated that her sister Liliane will also be here in the morning during rounds. SW and hospitalist notified of conversation as well. Nadine #[phone]
--- NOTE | 2021-11-29 17:26 | NUR ---
Blood transfusion completed; Patient tolerated it well. Daughter is at the bedside and an update was given. Plan is to start PLT transfusion shortly.
--- NOTE | 2021-11-29 18:20 | NUR ---
PLT Transfusion completed. Patient tolerated this well. VSS the entire time. Patient did not have any complaints.
[2021-11-29 18:40] LABS: MEAN CELL VOLUME 94 fl (80.0-100.0); MEAN CORPUSCULAR HGB CONC 35 g/dl (33.0-37.0); MEAN PLATELET VOLUME 9.6 fl (7.4-10.4); RED BLOOD COUNT 2.27 M/mm3 (4.20-5.60); REDCELL DISTRIBUTION WIDTH-CV 16.5 % (11.5-14.5)
[2021-11-29 18:56] LABS: HEMATOCRIT 21.3 % (42.0-52.0); HEMOGLOBIN 7.4 g/dl (13.5-18.0); MEAN CORPUSCULAR HEMOGLOBIN 33 pg (27-31); PLATELET COUNT 23 K/mm3 (130-400)
[2021-11-29 19:50] LABS: ANISOCYTOSIS 1+; LYMPHOCYTE 56 % (20.0-51.0); NEUTROPHILS 40 % (42.0-75.2); PLATELET ESTIMATE DECREASED (NORMAL)
[2021-11-29 19:51] LABS: OVALOCYTES 1+
--- NOTE | 2021-11-29 20:39 | NUR ---
Assessment complete and charted. Patient denies needs. Call light in reach.
[2021-11-30] VITALS (11 sets, daily range): BP systolic 109–124; BP diastolic 49–58; PULSE 76–88; TEMP 97.3–98.8
--- NOTE | 2021-11-30 06:30 | NUR ---
Patient required oxycodone this AM for 8/10 generalized pain. Resting in bed this AM. Call light in reach.
--- NOTE | 2021-11-30 06:48 | NUR ---
Report given to DAVID Romero
[2021-11-30 07:06] LABS: MEAN CELL VOLUME 93 fl (80.0-100.0); MEAN CORPUSCULAR HGB CONC 35 g/dl (33.0-37.0); REDCELL DISTRIBUTION WIDTH-CV 16.7 % (11.5-14.5)
[2021-11-30 07:28] LABS: CALCIUM 8.3 mg/dL (8.4-10.2); CREATININE, serum 1.43 mg/dL (0.72-1.25)
[2021-11-30 07:37] LABS: HEMATOCRIT 20.4 % (42.0-52.0); HEMOGLOBIN 7.1 g/dl (13.5-18.0); MEAN CORPUSCULAR HEMOGLOBIN 32 pg (27-31)
[2021-11-30 07:38] LABS: PLATELET COUNT 42 K/mm3 (130-400)
[2021-11-30 09:24] LABS: ANISOCYTOSIS 1+; BAND 3 % (0-10); LYMPHOCYTE 38 % (20.0-51.0); NEUTROPHILS 55 % (42.0-75.2); NUCLEATED RED BLOOD CELL 5 (0-6); PLATELET ESTIMATE DECREASED (NORMAL)
--- NOTE | 2021-11-30 09:25 | NUR ---
Met with patient, his daughter Liliane, and her at bedside. Discussed what had taken place with Claudy's treatment and why we wanted to talk with everyone. Liliane states she is the DPOA-HC and brought a copy of the patient's DPOA and living will (copy placed on chart and original returned to Liliane). During the conversation patient verbalized that he would not like CPR or intubation and daughter confirmed he wished to be DNR/DNI. Attended rounds with Dr. Rae and confirmed with him DNR/DNI status. Family verbalized understanding of treatment plan and that all questions had so far been answered. Liliane still wishes to have family meeting at 1300 with her siblings to ensure everyone is on the same page and "follows Dad's wishes". SW also attended rounds and clarified a discharge plan. Family feels comfortable with care at home and patient verbalizes he would not want to go to a facility.
--- NOTE | 2021-11-30 11:26 | NUR ---
SW attended clinical rounds. The patient's daughter, Liliane Rust, and her at bedside. Plan is for a family meeting today at 1300. SHAHRIAR followed up with the patient and his family. Liliane provided our palliative care RN with the patient's DPOA-HC and it was placed in the patient's chart. The patient's DPOA-HC is Liliane. SW introduced oneself and role. The patient and Liliane report that they are not ready for hospice and would like to pursue with the plan for returning home with grandson and home health. They state that the grandson is at home at all times and helps take care of the patient. The patient reports that he does have oxygen at home and the supplier is [employer]. The patient is currently on 8 liters of oxygen. SW to continue to follow. *Discharge plan: home with grandson and home health*
--- NOTE | 2021-11-30 13:24 | NUR ---
Held family meeting in patient room with Dr. Rae. Informed family group of DNR/DNI wishes and discussed treatment plan and low platelet concerns. Plan to wait and see if plateletes rebound and officially consult oncology so as to have discussion with family.
--- NOTE | 2021-11-30 14:21 | NUR ---
DPOA and daughter: Liliane Sanderskalyn #[phone]
[2021-12-01] VITALS (17 sets, daily range): BP systolic 83–125; BP diastolic 30–59; PULSE 62–77; TEMP 97.3–98.8
--- NOTE | 2021-12-01 05:00 | NUR ---
ASSESSMENT COMPLETE FOR THIS SHIFT. PT RESTING IN BED NAPPING. PT DENIED PAIN, PALPITATIONS, SOB, N,V,D OR DIZZINESS. PLATELET TRANSFUSION COMPLETED. VSS. PT TOLERATED WELL. PT EXPRESSED NO OTHER NEEDS AT THIS TIME. CALL LIGHT WITHIN REACH.
[2021-12-01 07:01] LABS: MEAN CORPUSCULAR HGB CONC 32 g/dl (33.0-37.0); REDCELL DISTRIBUTION WIDTH-CV 16.6 % (11.5-14.5)
[2021-12-01 07:14] LABS: CALCIUM 8.3 mg/dL (8.4-10.2); CREATININE, serum 1.38 mg/dL (0.72-1.25)
[2021-12-01 07:32] LABS: HEMATOCRIT 19.2 % (42.0-52.0); HEMOGLOBIN 6.1 g/dl (13.5-18.0); MEAN CELL VOLUME 101 fl (80.0-100.0); MEAN CORPUSCULAR HEMOGLOBIN 32 pg (27-31); PLATELET COUNT 15 K/mm3 (130-400)
--- NOTE | 2021-12-01 07:37 | NUR ---
CRITICAL LAB MICHAEL CALLED TO UMESH DAVILA. INFORMED OF PLATELETS 15, WBC 0.2, HGB 6.1, HCT 19.2.
--- NOTE | 2021-12-01 08:30 | NUR ---
Shift assessment complete. Pt resting in bed, family at bedside. A&Ox4. Heart RRR. Lungs CTA. Vitals stable. Denies pain or other concerns this morning. Does report to this RN and PT that he would like to go to SNF or swing bed prior to returning home. Family supportive of this decision. Pt to recieve one unit each of irradiated PRBCs and platelets once available in blood bank. Continuing to monitor.
[2021-12-01 09:47] LABS: LYMPHOCYTE 52 % (20.0-51.0); NEUTROPHILS 48 % (42.0-75.2)
[2021-12-01 09:49] LABS: HYPOCHROMIA 2+
[2021-12-01 09:50] LABS: ANISOCYTOSIS 1+; PLATELET ESTIMATE DECREASED (NORMAL); ROULEAUX 2+
--- NOTE | 2021-12-01 11:21 | NUR ---
Pt's daughter Liliane Bragg ([phone]) is pt's DPOA and pt would like her to be primary contact.
--- NOTE | 2021-12-01 17:00 | NUR ---
Prior to starting platelet transfusion, pt's right arm noted to be swollen and cool to touch. Attempted to flush PICC w/great resistance and unable to get blood return at this time. Charge nurse Ashley notified and agreed PICC needed to be assessed further prior to use. Chest xray to confirm placement ordered. After xray taken, Rica HERNANDEZ at bedside attempting to flush PICC w/o success. incinerator plant general supervisor Tsering also w/o success flushing/getting blood return. CXR results show PICC in correct place but still unable to easily flush or draw blood. Recommended not to use PICC until assessed by [facility] on Friday. Pt also has accessed Portacath in place. CXR showed port is malpositioned. , radiologist states port is safe to use if it flushes well and gets blood return and hospitalist approve it. Discussed this w/ who agrees and states port can be used if blood return noted. Assessed port and found it does flush easily and blood return noted. Platelet infusion to be started to right chest port per doctor's orders.
--- NOTE | 2021-12-01 19:54 | NUR ---
THE PATIENT HAS JUST COMPLETED HIS PLATELET INFUSION. DENIES ANY SHORTNESS OF BREATH, NO ANXIETY. HE DOES STATE THAT HE WISHES HIS KIDS WOULD UNDERSTAND THAT HE IS TIRED OF LAYING IN BED WITH NO CHANCE OF GETTING BETTER. HE STATES THAT HE IS READY TO GO COMFORT CARE, HOWEVER HIS DAUGHTER, GLENYS, IS NOT READY. HE STATES THAT "BECAUSE SHE IS NOT READY, I HAVE TO LAY HERE AN SUFFER." PT IS VERY TEARFUL DURING THIS CONVERSATION. NO OTHER CONCERNS AT THIS TIME. PATIENT IS RESTING COMFORTABLY.
[2021-12-01 21:22] LABS: MEAN CORPUSCULAR HGB CONC 33 g/dl (33.0-37.0); MEAN PLATELET VOLUME 11.7 fl (7.4-10.4); PLATELET COUNT 61 K/mm3 (130-400); RED BLOOD COUNT 2.21 M/mm3 (4.20-5.60); REDCELL DISTRIBUTION WIDTH-CV 17.2 % (11.5-14.5)
[2021-12-01 21:27] LABS: MEAN CORPUSCULAR HEMOGLOBIN 32 pg (27-31)
[2021-12-01 21:28] LABS: MEAN CELL VOLUME 95 fl (80.0-100.0)
[2021-12-01 22:53] LABS: BAND 17 % (0-10); BASOPHIL 1 % (0-2); LYMPHOCYTE 27 % (20.0-51.0); NEUTROPHILS 49 % (42.0-75.2)
[2021-12-01 22:54] LABS: PLATELET ESTIMATE DECREASED (NORMAL)
[2021-12-02] VITALS (10 sets, daily range): BP systolic 87–106; BP diastolic 28–85; PULSE 56–69; TEMP 97.8–98.6
--- NOTE | 2021-12-02 00:39 | NUR ---
BLOOD PRESSURE OF 87/31 DYNAMAP, MANUAL OF 96/42. WILL CONTINUE TO TAKE MANUAL PRESSURES FOR TONIGHT PER JUDITH FAIRBANKS.
--- NOTE | 2021-12-02 07:18 | NUR ---
PT HAD UNEVENTFUL NIGHT. REPORT GIVEN TO DAVID STEVENSON
[2021-12-02 08:11] LABS: MEAN CELL VOLUME 96 fl (80.0-100.0); MEAN CORPUSCULAR HGB CONC 33 g/dl (33.0-37.0); MEAN PLATELET VOLUME 12.1 fl (7.4-10.4); PLATELET COUNT 60 K/mm3 (130-400); RED BLOOD COUNT 2.21 M/mm3 (4.20-5.60); REDCELL DISTRIBUTION WIDTH-CV 17.1 % (11.5-14.5)
[2021-12-02 08:15] LABS: HEMATOCRIT 21.1 % (42.0-52.0); MEAN CORPUSCULAR HEMOGLOBIN 32 pg (27-31)
[2021-12-02 08:26] LABS: CALCIUM 8.4 mg/dL (8.4-10.2); CREATININE, serum 1.56 mg/dL (0.72-1.25)
--- NOTE | 2021-12-02 09:15 | NUR ---
Shift assessment complete. Pt lying in bed A&Ox4. Heart RRR. Lungs coarse to auscultation. Productive cough noted w/thick blood tinged sputum. PICC line continues to be difficult to flush. Swelling to right arm remains but much improved overnight. Right arm remains elevated on pillow. Portacath continues to get good blood return and flush easily. BPs remain soft, coreg placed on hold and lasix dose decreased by hospitalist. Pt's platelets, WBC, and Hgb much improved today. Pt denies needs at this time. Continuing to monitor.
[2021-12-02 09:41] LABS: BAND 1 % (0-10); LYMPHOCYTE 31 % (20.0-51.0); METAMYELOCYTE 1 % (0-0); NEUTROPHILS 56 % (42.0-75.2)
[2021-12-02 09:42] LABS: ANISOCYTOSIS 1+; PLATELET ESTIMATE DECREASED (NORMAL)
[2021-12-03 03:57] VITALS: BP 108/49; PULSE 65; TEMP 97.9
--- NOTE | 2021-12-03 04:22 | NUR ---
RESTING QUIETLY. TYLENOL AND OXYCODONE FOR PAIN. PT STATES HIS THROAT HAS BEEN VERY DRY AND HE FREQUENTLY HAS INDIGESTION.
[2021-12-03 06:49] LABS: MEAN CELL VOLUME 99 fl (80.0-100.0); MEAN CORPUSCULAR HGB CONC 32 g/dl (33.0-37.0); MEAN PLATELET VOLUME 11.7 fl (7.4-10.4); PLATELET COUNT 99 K/mm3 (130-400); RED BLOOD COUNT 2.34 M/mm3 (4.20-5.60); REDCELL DISTRIBUTION WIDTH-CV 16.8 % (11.5-14.5)
[2021-12-03 07:01] LABS: HEMOGLOBIN 7.5 g/dl (13.5-18.0); MEAN CORPUSCULAR HEMOGLOBIN 32 pg (27-31)
[2021-12-03 07:02] LABS: HEMATOCRIT 23.2 % (42.0-52.0)
[2021-12-03 07:06] LABS: CALCIUM 8.6 mg/dL (8.4-10.2); CREATININE, serum 1.76 mg/dL (0.72-1.25); POTASSIUM 4.1 mmol/L (3.5-4.5)
[2021-12-03 07:40] VITALS: BP 109/37; PULSE 66; TEMP 97.9
[2021-12-03 08:01] LABS: BAND 15 % (0-10); LYMPHOCYTE 22 % (20.0-51.0); METAMYELOCYTE 3 % (0-0); MYELOCYTE 1 % (0-0); NEUTROPHILS 45 % (42.0-75.2); NUCLEATED RED BLOOD CELL 4 (0-6)
[2021-12-03 08:03] LABS: PLATELET ESTIMATE DECREASED (NORMAL); POLYCHROMASIA 1+
[2021-12-03 08:04] LABS: ANISOCYTOSIS 1+
--- NOTE | 2021-12-03 10:19 | NUR ---
PT SITTING UP ON EDGE OF BED. MORNING MEDICATIONS GIVEN. SHIFT ASSESSMENT COMPLETED. UNABLE TO GET BLOOD RETURN FROM PICC OR PORT, BOTH FLUSH GOOD. CURRENTLY ON 6L VIA NC. DENIES PAIN OR NEEDS AT THIS TIME. DID REPORT SOME DIZZINESS THIS MORNING, BP RUNNING LOW, BRIANNA DAVILA NOTIFIED. WILL CONTINUE TO MONITOR.
[2021-12-03 11:29] VITALS: BP 102/48; PULSE 67; TEMP 97.7
[2021-12-03 11:48] LABS: PATHOLOGY DIFF REVIEW OK
[2021-12-03 11:51] LABS: PATHOLOGY DIFF REVIEW OK
--- NOTE | 2021-12-03 14:29 | NUR ---
THIS RN CONTACTED BECAUSE PT ARM WITH PICC LINE IS WEEPY AND SOAKING THE BEDDING. THIS RN ASSESSED SITE AND NOTED CONTINUAL DRAINAGE AND PITTING EDEMA. DAVID DUMONT CONTACTED. THIS RN INSTRUCTED TO AGGRESSIVELY FLUSH SITE AND ATTEMPT TO GET BLOOD RETURN.
--- NOTE | 2021-12-03 14:38 | NUR ---
THIS RN ABLE TO DRAW BLOOD RETURN OFF OF ASBESTOS HAZARD ABATEMENT WORKER. PURPLE CAP HAS NO BLOOD RETURN.
[2021-12-03 15:40] VITALS: BP 94/63; PULSE 66; TEMP 97.6
--- NOTE | 2021-12-03 16:00 | NUR ---
PICC intact right upper arm. lower right forearm weeping. had an IV infilatration in his right arm. Right arm in soft and supple with no pain. primary care nurse reports a venous doppler has been ordered. await results.
--- NOTE | 2021-12-03 17:13 | NUR ---
INFORMED BY DAVID DUMONT THAT PICC LINE FLUSHES AND HAS BLOOD RETURN FROM BOTH LINES. THIS RN CONTACTED LOLA REED AND INFORMED HER OF THIS. SHE INSTRUCTED ME TO LEAVE PICC LINE IN PLACE UNTIL VENOUS DOPPLER IS COMPLETED.
[2021-12-03 19:04] VITALS: BP 104/54; PULSE 100; TEMP 97.4
[2021-12-03 20:31] LABS: CLOSTRIDIUM DIFF A/B NEG; CLOSTRIDIUM DIFF A/B INTERP No C.diff present
--- NOTE | 2021-12-03 21:54 | NUR ---
ALERT AND OX4. DENIES PAIN, SOA. IS DIZZY OFTEN. RT UPPER ARM PICC RETURNED GOODS RECEIVING CLERK FLUSH AND DRAWS BLOOD, BLUE FLUSHED W HESISTANCY NO BLOOD RETURN. RT ARM WEAPING AND SATURATING GERRY PAD, CHANGED. PM MEDS GIVEN. MARIAH TEJADA DD, YELLOW W SEDIMENT. CALL LIGHT WI REACH.
[2021-12-03 23:57] VITALS: BP 103/40; PULSE 66; TEMP 97.9
[2021-12-04 04:05] VITALS: BP 117/55; PULSE 67; TEMP 98
--- NOTE | 2021-12-04 06:21 | NUR ---
DIDNT SLEEP OVERNIGHT. RESTING NOW. PT DAUGHTER CALLED THIS AM, UPDATED. LABS DRAWN PER LINE.
[2021-12-04 06:33] LABS: MEAN CELL VOLUME 96 fl (80.0-100.0); MEAN CORPUSCULAR HGB CONC 33 g/dl (33.0-37.0); MEAN PLATELET VOLUME 11.4 fl (7.4-10.4); PLATELET COUNT 160 K/mm3 (130-400); RED BLOOD COUNT 2.29 M/mm3 (4.20-5.60); REDCELL DISTRIBUTION WIDTH-CV 16.8 % (11.5-14.5)
[2021-12-04 06:46] LABS: CALCIUM 8.4 mg/dL (8.4-10.2); CREATININE, serum 1.83 mg/dL (0.72-1.25)
[2021-12-04 07:09] LABS: HEMOGLOBIN 7.3 g/dl (13.5-18.0); MEAN CORPUSCULAR HEMOGLOBIN 32 pg (27-31)
[2021-12-04 07:15] VITALS: BP 119/43; PULSE 66; TEMP 97.8
[2021-12-04 07:36] LABS: ANISOCYTOSIS 1+; BAND 22 % (0-10); LYMPHOCYTE 10 % (20.0-51.0); METAMYELOCYTE 9 % (0-0); MICROCYTOSIS 1+; NEUTROPHILS 49 % (42.0-75.2); NUCLEATED RED BLOOD CELL 1 (0-6); PLATELET ESTIMATE NORMAL (NORMAL)
--- NOTE | 2021-12-04 09:28 | NUR ---
PT LAYING IN BED. SHIFT ASSESSMENT COMPLETED WITH STUDENT NURSE, MONICO AT BEDSIDE. PT DENIES ANY PAIN. RUE STILL WEEPY WITH PITTING 3+ EDEMA. PICC LINE FLUSHES AND HAS GOOD BLOOD RETURN FROM BOTH LINES. PT STATES HE FEELS LIKE HIS BREATHING IS WORSE TODAY, AUDIBLE WHEEZING NOTED. LEMUS DRAINING WELL. CURRENTLY ON 5L OXYGEN VIA NC. WILL CONTINUE TO MONITOR.
[2021-12-04 11:19] VITALS: BP 111/54; PULSE 63; TEMP 97.8
[2021-12-04 11:20] LABS: PARTIAL THROMBOPLASTIN TIME 21.7 SECONDS (26.0-37.0)
--- NOTE | 2021-12-04 13:51 | NUR ---
Received phone call from therapy that patient was refusing to work with them and that he wanted to go on hospice services. I then went in to patient's room and talked with him at bedside. He told me that he is done and tired of having shortness of breath, dry mouth, and hurting and is "ready to go home, home home, with the lord". I asked him to clarify that he wanted to stop treatment for cancer and he verbalized yes. I asked him if he wanted to stop treatment here at the hospital and he again verbalized yes. I also asked him to clarify if he wanted to return to his home or if he had thought about hospice services elsewhere, to which he stated he wanted to go to [place] and not have his grandson have to care for him anymore. He also stated that he would be open to [facility] if [facility] is not able to accept him. I then again asked him if he realized hospice would mean leaving the hospital and no longer being readmitted or seeking treatment for his cancer, and he stated "I'm done with all that". He then asked me to call his daughter Nadine and inform her of his decision. He dialed her on his cell phone and we discussed things on speakerphone. She stated that it is "Dad's choice", asked me what would change, and stated that she would call her siblings. As I was leaving [place]'s room, Liliane, the patient's other daughter and DPOA called me and asked how the conversation took place but was interrupted and stated she would call me back. Hospitalist team, SW, and primary RN notified of discussion and move to comfort care.
--- NOTE | 2021-12-04 13:54 | NUR ---
Patient verbalizes that he it " done, just let me go" to PA during rounding this morning. Collaborated with clinical team and patient would like to go to [facility] with hospice. Patient's second choice is the [facility]. [facility] contacted and they do not currently have an opening to accept this patient. Adi with [facility] states that they should have an opening later this week. Patient's information faxed to [facility]
--- NOTE | 2021-12-04 15:16 | NUR ---
Missed call from patient's daughter, Liliane. Called her back and discussed options for pain control and sleep aids. Her concern is that this is a bad decision for the patient and that if he waits too long or gets discharged he may not be able to change his mind. She stated that if he is of sound mind and we feel that this is not just a depressive and rash decision she supports him, but appreciates us verifying. Patient currently sleeping with grandson, Min, at bedside. Will attempt to reassess later. Comfort care orders have been placed per patient's discussions with hospitalist group and nursing staff. Family aware that there is no discharge plan at the moment and patient can change his mind. I discussed with Liliane exactly what changed in regards to medications.
--- NOTE | 2021-12-04 16:43 | NUR ---
Patient's dtr Nadine here and stepped into my office. She had Liliane on the phone for our conversation as well. We discussed what orders were changed with comfort care and that we were looking at the hospice house for possible discharge location. We discussed pain management and sleep aids available to the patient. I then went to bedside with Nadine and discussed comfort care specifics with the patient and his grandson. He is still comfortable with his decision and I helped clarify that he can ask for pain medication or relief from other concerns that arise. He told me at this time he is dizzy and would like something to help that. Call made to hospitalist team and they will order new medication to trial. Then notified primary RN of discussions and new orders.
--- NOTE | 2021-12-04 21:26 | NUR ---
PT DECIDED TO GO COMFORT CARE TODAY. DAUGHTER AT BEDSIDE. PAIN MEDICATION GIVEN TO PT PER REQ
--- NOTE | 2021-12-05 06:10 | NUR ---
RESTED THROUGH THE NIGHT WITHOUT INCIDENT. APPEARS TO BE MORE COMFORTABLE OVERNIGHT WITH ADM OF ROXALNOL.
--- NOTE | 2021-12-05 07:42 | NUR ---
PT SLEEPING IN BED. PAIN MEDICATIONS GIVEN PER eMAR. PT BARELY ABLE TO SPEAK. SHIFT ASSESSMENT COMPLETED. REPORTING PAIN IN ARMS. ON 5L OXYGEN VIA NC. WILL CONTINUE TO MONITOR.
--- NOTE | 2021-12-05 13:50 | NUR ---
UNABLE TO AROUSE PT BY CALLING NAME. RESPIRATIONS CURRENTLY AT 7 PER MINUTE. FAMILY AT BEDSIDE.
--- NOTE | 2021-12-05 16:43 | NUR ---
Unopened valuables envelope returned to daughter Nadine Arias per daughter's request.
--- NOTE | 2021-12-05 16:45 | NUR ---
PT UNAROUSABLE THROUGHOUT THE DAY. FAMILY IN AND OUT AT BEDSIDE. CONTINUING TO MONITOR.
[2021-12-05 20:00] VITALS: BP 107/50; PULSE 83; TEMP 99.7
--- NOTE | 2021-12-05 23:37 | NUR ---
PT IS UNRESPONSIVE, RESP 8, GIVING PRN MEDICATION NEEDED PER ORDER. O2 AT 85%, PULSE TACHY IN 90'S. ACTIVLY DIEING, MONITORING.
--- NOTE | 2021-12-06 00:41 | NUR ---
PT GRIMACING, ROXANOL GIVEN, OPENS EYES BREIFLY WITH MINMAL TO NO RESPONSE. RESP 10, 02 DECREASED TO 3L- O2 AT 77%. CONT TO MONITOR. PT APPEARS TO BE MORE COMFORTABLE AFTER PAIN MEDS.
[2021-12-06 04:27] VITALS: BP 113/44; PULSE 102
--- NOTE | 2021-12-06 05:03 | NUR ---
UPDATED PT DAUGHTER GLENYS, PT IS COMFORTABLE BUT NON [id number]. ENC PT TO COME UP TO BE WITH HER DAD HE IS ACTIVLY PASSING, OF COURSE NO ONE KNOWS THE TIME BUT PT IS SHOWING SIGNS OF PASSING. WILL TAKE SHOWER AND COME UP THIS AM.
[2021-12-06 07:41] VITALS: TEMP 101.1
--- NOTE | 2021-12-06 10:27 | NUR ---
visited with family at bedside. They are requesting last rights for the patient and are checking if their family railroad police can come it to perform that. I will follow-up if we need to call a local railroad police instead. Notified Chaplain Hargrove as well.
--- NOTE | 2021-12-06 10:27 | NUR ---
Initial visit; Family gathered, Campus Rep offered to call their family Supervisor [employer] and offered prayer and the Psa for patient and family.
--- NOTE | 2021-12-06 10:46 | NUR ---
Follow-up; Fretted Instrument Repairer contacted to administer Last Rites for patient. Family had requested to Oncology Nurse.
--- NOTE | 2021-12-06 13:23 | NUR ---
Collaborated with physician staff on the status of patient. All are in agreement that transferring the patient at this time is not in the patient best interest. Patient is still on the wait list for [facility]. Family brought in layer off to read the patient his last rites.
--- NOTE | 2021-12-06 14:32 | NUR ---
WHILE MAKING ROUNDS PATIENT FELT VERY HOT TO TOUCH, TEMP CHECKED VIA TEMP SCANNER, READING OF 105 F. UMESH HADLEY NOTIFIED. PATIENT UNABLE TO TAKE PRN PO TYLENOL DUE TO UNRESPONSIVNESS. PATIENT CURRENTLY ON COMFORT MEASURES.
--- NOTE | 2021-12-06 15:15 | NUR ---
Report from DAVID Young. Patient repositioned for comfort. Fan given to the family. Call light within reach
--- NOTE | 2021-12-06 16:10 | NUR ---
Family came out to the nursing station with concerns, DAVID Pritchett, DAVID Valencia and DAVID Bowman went into the room to assess the patient. No audible heart beat heard with stethscope by RN's present in the room. LOLA Paul notified and concrete paving supervisor DAVID Joshi notified. DAVID White communicated with the family. No further needs expressed.
--- NOTE | 2021-12-06 17:58 | NUR ---
Patient given a bed bath and is ready for pickup from the home. home contacted.
--- NOTE | 2021-12-06 18:12 | NUR ---
Patient leaving with PICC in [facility] and Port accessed, nurse called the home to confirm if the facility will take the patient with port and picc in place.
== END 2021-12-06 18:15 | disposition expired | DRG 308 ==
LOC: COL.ER 11:08 → ICU 12:35 → MEDICAL 11-25 17:20
PROVIDERS: Internal Medicine; Internal Medicine Interventional Cardiology; Internal Medicine Nephrology; Nurse Practitioner Family; Personal Emergency Response Attendant; Physician Assistant; Student in an Organized Health Care Education/Training Program; ADMIT Internal Medicine
PROC: 5A2204Z Restoration of Cardiac Rhythm, Single (ICD-10-PCS; principal; 2021-11-23)
PROC: B24BZZ4 Ultrasonography of Heart with Aorta, Transesophageal (ICD-10-PCS; 2021-11-23)
PROC: 02HV33Z Insertion of Infusion Device into Superior Vena Cava, Percutaneous Approach (ICD-10-PCS; 2021-11-23)
PROC: 30233R1 Transfusion of Nonautologous Platelets into Peripheral Vein, Percutaneous Approach (ICD-10-PCS; 2021-11-29)
PROC: 5A09357 Assistance with Respiratory Ventilation, Less than 24 Consecutive Hours, Continuous Positive Airway Pressure (ICD-10-PCS; 2021-11-29)
DX: I47.2 Ventricular tachycardia (principal); I50.23 Acute on chronic systolic (congestive) heart failure; K85.90 Acute pancreatitis without necrosis or infection, unspecified; J96.21 Acute and chronic respiratory failure with hypoxia; D61.810 Antineoplastic chemotherapy induced pancytopenia; J18.9 Pneumonia, unspecified organism; Z68.41 Body mass index [BMI] 40.0-44.9, adult; N17.9 Acute kidney failure, unspecified; Z20.822 Contact with and (suspected) exposure to COVID-19; Z66 Do not resuscitate; Z51.5 Encounter for palliative care; B37.0 Candidal stomatitis; I82.621 Acute embolism and thrombosis of deep veins of right upper extremity; E87.3 Alkalosis; I42.9 Cardiomyopathy, unspecified; I48.92 Unspecified atrial flutter; E11.9 Type 2 diabetes mellitus without complications; J44.9 Chronic obstructive pulmonary disease, unspecified; G47.33 Obstructive sleep apnea (adult) (pediatric); C67.9 Malignant neoplasm of bladder, unspecified; I48.91 Unspecified atrial fibrillation; I08.1 Rheumatic disorders of both mitral and tricuspid valves; I77.819 Aortic ectasia, unspecified site; I45.10 Unspecified right bundle-branch block; E11.22 Type 2 diabetes mellitus with diabetic chronic kidney disease; N18.9 Chronic kidney disease, unspecified; D69.6 Thrombocytopenia, unspecified; N40.0 Benign prostatic hyperplasia without lower urinary tract symptoms; I25.10 Atherosclerotic heart disease of native coronary artery without angina pectoris; E87.6 Hypokalemia; F32.A Depression, unspecified; E66.9 Obesity, unspecified; Z79.01 Long term (current) use of anticoagulants; Z96.653 Presence of artificial knee joint, bilateral; Z86.711 Personal history of pulmonary embolism; Z90.49 Acquired absence of other specified parts of digestive tract; Z87.891 Personal history of nicotine dependence; Z88.5 Allergy status to narcotic agent
CPT/HCPCS: 99223-AI; 99231-AI; 99233-AI; 99239; A9500; C1751; C1892; J0282; J0456; J0692; J0696; J1447; J1644; J1815; J1940; J2060; J2704; J2785; J3475; J3480; J7050; J7060; J7512; P9035; P9040